=== PATIENT | female | born 1975 | race Caucasian/White ===

== ENCOUNTER 2022-11-29 12:17 | Emergency (ER) | payer OTHER, SELFPAY ==
--- NOTE | ~2022-11-29 | XR_ITS ---
EXAMINATION: XR chest 2V 11/29/2022 13:26 INDICATION: Shortness of breath and cough. Wheezing. PROCEDURE: 2 view chest COMPARISON: No prior studies for comparison. FINDINGS: The lungs are clear. The cardiomediastinal silhouette is within normal limits. There are no pleural effusions. There is no pneumothorax suspected. IMPRESSION: 1: NO ACUTE CARDIOPULMONARY DISEASE. Reviewed, dictated and finalized at location A. [employer]
[2022-11-29 12:38] VITALS: BP 134/67; PULSE 90; RESP 18; TEMP 36.6; O2SAT 99
--- NOTE | 2022-11-29 13:24 | ED.GENADULT ---
HPI - General Adult General Chief complaint: Upper Respiratory Infection Stated complaint: cough,shortness of breath Source: patient Mode of arrival: ambulatory Limitations: no limitations History of Present Illness HPI narrative: Patient presents for evaluation of respiratory symptoms for the last 3 days. She initially thought that she had a fever but did not check her temperature. She also had some diarrhea but that resolved. She also had some generalized body aches but those resolved within 24 hrs of symptom onset. She has noted a productive cough and shortness of breath. Shortness of breath is worse with exertion. She states one of her coworkers recently had similar symptoms. She has had a few episodes of vomiting but she attributes that to the severity in which she was coughing. She had COVID in July of 2021. She smokes 1 ppd. She tried taking mucinex but that did not help. She has since been using dayquil which does seem to reduce her symptoms. She states she does have COPD but does not have any inhalers at home. Related Data Allergies Allergy/AdvReac Type Severity Reaction Status Date / Time No Known Allergies Allergy Verified 11/29/22 12:59 Review of Systems Review of Systems: CONSTITUTIONAL: Reports recent fever, none currently. Denies chills EYES: Denies visual changes, redness, or discharge. ENT: Denies rhinorrhea, congestion, sore throat, or otalgia. CARDIOVASCULAR: Denies chest pain, palpitations, or edema. RESPIRATORY: Reports cough and shortness of breath.. GASTROINTESTINAL: Reports vomiting during coughing episodes. Denies vomiting otherwise. Denies abdominal pain, vomiting, or diarrhea. GENITOURINARY: Denies dysuria or hematuria. SKIN: Denies rash or itching. MUSCULOSKELETAL: Reports recent body aches, none currently NEUROLOGIC: Denies headache, numbness, dizziness, or weakness. PSYCHIATRIC: Denies anxiety or depression. [facility] Past Medical History Medical History (Updated 11/29/22 @ 14:04 by Shahab Cao, TRUDI, CARRIE) COPD (chronic obstructive pulmonary disease) Surgical History Surgical History (Updated 11/29/22 @ 13:31 by TRUDI Genao, CARRIE) No pertinent past surgical history Family History Family History Mother Family history non-contributory Social History Social History (Updated 11/29/22 @ 13:32 by Shahab Cao, [facility], ) Smoking packs per day: 1 Smoking cigarettes per day: 20.0 Smoking status: Current every day smoker Substance use: current Substance use type: marijuana Living arrangements: with family Gender identity (if verbalized by the patient): Female Sexual Orientation (if Verbalized by the Patient): Straight or Heterosexual Spiritual care concerns: No Exam Narrative: GENERAL: Well-appearing, well-nourished, and in no acute distress. HEAD: Normocephalic, atraumatic. EYES: PERRLA and EOMI. ENT: Nares clear, no rhinorrhea or epistaxis. Mucous membranes moist. Oropharynx without tonsillar hypertrophy exudate or other lesions. Bilateral TMs pearly daniels nonbulging NECK: Supple. No adenopathy or masses. No carotid bruits or JVD CHEST: Diffuse inspiratory and expiratory wheezing noted in bilateral posterior lung suarez HEART: Regular rate and rhythm. No murmur heard. Normal peripheral pulses. ABDOMEN: Soft, nontender, nondistended, normal active bowel sounds. EXTREMITIES: Normal range of motion. No edema. SKIN: Warm, dry, no rash. NEURO: No focal deficits. Alert and oriented x3. PSYCH: Normal mood and affect. Course Course Emergency Course: This is a 47-year-old female who presented for evaluation of respiratory symptoms. COVID influenza were negative. Chest x-ray normal. Given Solu-Medrol and breathing treatment while here. Saturations normal. Exam is consistent with acute viral syndrome. Will discharge with prednisone, Tessalon, albuterol. Advised on smoking cess
[2022-11-29] MEDS: ALBUTEROL SULFATE NEB 2.5 MG/3 ML INH INHALATION (13:31)
[2022-11-29] MEDS: IPRATROPIUM BR 0.02% INH SOLN 0.5 MG/2.5 ML VIAL INHALATION (13:32)
[2022-11-29] MEDS: methylPREDNISolone SOD SUCC 125 MG VIAL IM (13:32)
[2022-11-29 14:05] VITALS: PULSE 86; RESP 18; O2SAT 98
== END 2022-11-29 14:05 | disposition home or self-care (01) ==
PROVIDERS: Emergency Provider Nurse Practitioner
DX: J06.9 Acute upper respiratory infection, unspecified (principal); Z20.822 Contact with and (suspected) exposure to COVID-19; J44.9 Chronic obstructive pulmonary disease, unspecified; F17.210 Nicotine dependence, cigarettes, uncomplicated; F12.90 Cannabis use, unspecified, uncomplicated; Z86.16 Personal history of COVID-19
CPT/HCPCS: 71046; 87426; 87804; 94640; 96372; 99213; C9803; G0463; J2930